=== PATIENT | male | born 1965 | race Caucasian/White ===

== ENCOUNTER 2024-10-04 12:47 | Outpatient (RCR) | payer MEDICAID, SELFPAY ==
--- NOTE | 2024-10-04 14:48 | HP.OTFCE_ITS ---
Task Lift Floor (Occasional 1-33% of Day): 25 Floor (Frequent 34-66% of Day): 12.5 Floor (Constant 67-100% of Day): 5.26 Floor PDL: Light Knee (Occasional 1-33% of Day): 25 Knee (Frequent 34-66% of Day): 12.5 Knee (Constant 67-100% of Day): 5.26 Knee PDL: Light Waist (Occasional 1-33% of Day): 25 Waist (Frequent 34-66% of Day): 12.5 Waist (Constant 67-100% of Day): 5.26 Waist PDL: Light Shoulder (Occasional 1-33% of Day): 25 Shoulder (Frequent 34-66% of Day): 12.5 Shoulder (Constant 67-100% of Day): 5.26 Shoulder PDL: Light Overhead (Occasional 1-33% of Day): 15 Overhead (Frequent 34-66% of Day): 7.5 Overhead (Constant 67-100% of Day): 3.15 Overhead PDL: Sedentary-Light Comments: pt performs at light task lift for floor, knee, waist as well as shoulder. pt performs at sedentary-light for overhead task lift Work Activity/Posture Bending: Frequent Ability (34-66% of day) Squatting: Frequent Ability (34-66% of day) Kneeling: Frequent Ability (34-66% of day) Reaching out: Constant Ability (67-100% of day) Reaching up: Constant Ability (67-100% of day) Sitting: Constant Ability (67-100% of day) Walking: Frequent Ability (34-66% of day) Standing: Frequent Ability (34-66% of day) Reference Reference: Duration Sedentary Sedentary Light Light Light Medium Medium Medium Heavy Very Heavy Heavy Occasional (0-33% of day) Frequent (34-66% of day) Constant (67-100% of day) 10 # Negligible Negligible 15 # 8 # Negligible 20 # 10# Negli. 35 # 18 # 7 # 50 # 25 # 10 # 75 # 100 # >100 # 38 # 50 # >50 # 15 # 20 # >20 # Patient Information Height: 5 ft 3 in Weight:: 56.699 kg Hand Dominance: R Medical History Medical History Including Restrictions: This male chronic flank pain on R side per pt he has been having for approx 4-5 months has not yet done therapy or medications to manage. pt states laying down helps the symptoms as well as sitting while standing exacerbates symptoms. Pt states chronic headache from episcopal to back of head which is constant pt has been dealing with for last 3 months. Pt states he does take pain Aleve for this states it sometimes helps but not all the time. pt states he did receive a shunt when he was 10 and it was taken out approx 2 years ago. Pt is unable to provide additional information to therapist regarding medical hx and nothing available in chart. 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 once inside one level. pt is I in all ADL tasks performs the IADL tasks. does not drive family will assist in driving pt as needed. license taken from pt due to driving on license. pt has tub shower no grab bars and stands to complete and standard commode. and son will do grocery shopping tasks and tasks involving the community. pt has a dog and cat he cares for. does not use any AD as means of mobility. no recent falls per his recollection. Physical Examination Physical Examination: baseline measurement sitting before beginning physical examination: HR 70 bpm and 02 96% ROM: BUE WFL BLE WFL Strength: upper extremity: R shoulder flexion 11.5# L shoulder flexion 11.1# R bicep 18.2# L bicep 18.8# R tricep 18.8# L tricep 16.5# R ER 18.5# L ER 14.6# Lower extremity: R hip flexor: 15.3# L hip flexor 13.1# R quad 13.1# L quad 13.3# R hamstring 18# L hamstring 20.4# Right Staffing And Scheduling Coordinator Strength Average: 70.00 Right Staffing And Scheduling Coordinator Strength Percentile: 11.7 percentile Left Staffing And Scheduling Coordinator Strength Average: 78.33 Left Staffing And Scheduling Coordinator Strength Percentile: 25.8 percentile Right Lateral Pinch Average: 9.66 Right Lateral Pinch Percentile: <10th percentile Left Lateral Pinch Average: 9.33 Left Lateral Pinch Percentile: < 10th percentile Right Tripod Pinch Average: 11.00 Right Tripod Pinch Percentile: <10th percentile Left Tripod Pinch Average: 8.66 Left Tripod Pinch Percentile: < 10th percentile Sensation: denies numbness or tingling of BUE or BLE Fine Motor: 9 hole peg assessment : L trial 1: 32 sec L trial 2: 28 sec L trial 3: 27 sec L hand Average: 29 seconds indicating pt is in 10th percentile for age and gender R trial 1: 27 sec R trial 2: 24 sec R trial 3: 24 sec R hand Average: 26 seconds indicating pt is in 10th percentile for age and gender Balance: standing forward reach score 12 indicating pt is mild risk for falls Non Material Handling Activities Bending: bending trial of 3: 3/3 10x at own pace: 1010 sits after this rep due to slight lightheadedness 10x fast: 10 hold onto desk with unilateral support for completion of all reps uses wide stance to perform -- slight unsteadiness coming back up to stand HR 89 bpm and 02 97% R side pain 8/10 head pain 8/10 Squatting: squatting: trial of 3: 3/3 10x at own pace: 08/04 10x fast: 10/10 unsteadiness when coming to stand slight assist at rep 6 to assure does not go backwards uses L hand on knee to assist in pushing back up unilateral support of desk for stability seated RB after completion HR 95 bpm and 02 97% R side pain 9/10 and head pain 8/10 Kneeling: kneeling trial of 3: 3/3 10x at own pace: 08/04 10x fast: 10/10 unilateral support of desk to complete for stability HR 120 bpm and 02 99% pain in R side 9/10 head pain 8/10 Reaching out/up: reaching out: trial of 3: 3/3 10x at own pace: 08/04 10x fast: 10 reaching up: trial of 3: 3/3 10x at own pace: 08/04 10x fast: 1010 HR 92 bpm and 02 97% wide stance during task seated RB after completion R side pain 9/10 headache pain 9/10 Walking: walks x2 lap around therapy room total of 772 feet no AD no LOB and no need for wall bars HR 88 bpm and 02 96% has to sit after second lap due to legs starting to hurt R sided pain 9/10 and head pain 9/10 Standing: pt is able to stand for 15 min duration before sitting for break during evaluation unsure as to how long he can stand for pt states it would be less than an hour -- normally has to sit due to pain in LEs Sitting: per pt he could sit for a few hours before needing to stand back up pt sits for intake of FCE assessment 30 minutes no adjustment of posture needed during intake Climbing Stairs: able to ascend and descend 10 stairs using B hand rails alternating feet during task no LOB takes small rest break at top of stairs to collect self then comes back down Dynamic Occasional Lifting Capacity Floor Lift: box (15#)+ 10# total of 25# wide stance bends at waist to perform HR 106 bpm and 02 96% Knee Lift: box (15#) +10# total of 25# wide stance bends at waist to perform HR 96 bpm and 02 97% pain at side 9/10 head pain 9/10 Waist Lift: box (15#) + 10# total of 25# takes one side step and comes back no LOB during task hold box close to core HR 98 bpm and 02 94% Shoulder Lift: box (15#) + 10# total of 25# HR 97 bpm and 02 96% pain R side 9/10 herad pain 9/10 Overhead Lift: box (15#) no additional weight total of 15# HR 96 bom and 02 95% Carrying: box (15#) + 5# total of 20# carrys from filing cabinet and back unsteadiness with turn and L knee slightly b ends total of 52 feet walks with toes turned out HR 110 bpm and 02 98% pain in R side 9/10 head pain 9/10
== END 2024-10-04 19:00 | disposition home or self-care (01) ==
LOC: OT 12:47
PROVIDERS: PCP Internal Medicine; Referring Provider Internal Medicine; Visit Provider Internal Medicine
DX: R10.9 Unspecified abdominal pain (principal); G89.29 Other chronic pain
CPT/HCPCS: 97750